=== PATIENT | male | born 1980 | race Caucasian/White ===

== ENCOUNTER 2016-11-11 20:51 | Emergency (ER) | payer OTHER ==
[2016-11-11] MEDS ORDERED: TETRACAINE HCL 150 DROP BTL ONE (21:09)
[2016-11-11] MEDS ORDERED: TETRACAINE HCL 150 DROP BTL EACHEYE ONE (21:21)
[2016-11-11] MEDS ORDERED: HYDROcodone/ACETAMINOPHEN 1 EACH TABLET PO ONE (21:39)
[2016-11-11] MEDS ORDERED: GENTAMICIN SULFATE 3.5 APPL TUBE EACHEYE ONE (21:40)
[2016-11-11] MEDS ORDERED: GENTAMICIN SULFATE 3.5 APPL TUBE ONE (21:40)
[2016-11-11] MEDS ORDERED: HYDROcodone/ACETAMINOPHEN 1 EACH TABLET ONE (21:40)
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
[2016-11-11 22:18] VITALS: BP 126/76
== END 2016-11-11 22:09 | disposition home or self-care (01) ==
LOC: ER 20:51
DX: H16.133 Photokeratitis, bilateral (principal); X08.8XXA Exposure to other specified smoke, fire and flames, initial encounter; Y93.89 Activity, other specified; Y92.63 Factory as the place of occurrence of the external cause; Y99.0 Civilian activity done for income or pay